=== PATIENT | female | born 1980 | race Caucasian/White ===

== ENCOUNTER 2017-06-13 12:23 | Inpatient (IN) | payer OTHER ==
[2017-06-13] MEDS ORDERED: LR 1,000 ML IV PRN (13:24)
[2017-06-13] MEDS ORDERED: OXYTOCIN/RINGERS LACTATE 1,000 ML IV PRN (13:24)
[2017-06-13] MEDS ORDERED: OLIVE OIL 118 ML BTL MISC PRN (13:24)
[2017-06-13] MEDS ORDERED: TERBUTALINE SULFATE 1 MG/ML VIAL IV PRN (13:24)
[2017-06-13] MEDS ORDERED: EPSOM SALT 454 GM TP PRN (13:24)
[2017-06-13] MEDS ORDERED: ZOLPIDEM TARTRATE 5 MG TAB PO ONE (21:12)
[2017-06-13] MEDS: ACETAMINOPHEN 325 MG TAB PO PRN (21:27)
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
[2017-06-14] MEDS ORDERED: LR 500 ML IV PRN (00:11)
--- NOTE | 2017-06-14 00:16 | OBPROG ---
OBG Labor Progress Note Assessment/Plan: Assessment: 37 y/o @ 39 2/7 wks for IOL secondary GHTN Plan: s/p best balloon, out at MO SVE - 1-260/-3, post NST now Will start Pitocin in am 06/14 BPs stable, most recent 116/80. Will cont to closely monitor Relief of TRAN with Tylenol 06/14/17 00:15 Subjective: Pt is sleeping at this time - SVE Dilation (cm): 1 (1-2) Effacement (%): 50 (60) Station: -3 Ibarra Current Contraction Pattern: Irregular, Other (Specify) FHR (bpm): 140 FHR Pattern Variability: Moderate FHR Category: 1 Membranes: Intact Oxytocin Orders Assessment - Pre-Induction/Augmentation Assessment Gestational Age: 39 week(s) and 2 day(s) ICD10 Worksheet Patient Problems: Problems Problem Status Onset Gestational HTN Acute - ICD10 Problem Qualifiers (1) Gestational HTN Qualifiers: Trimester: T
[2017-06-14] MEDS ORDERED: OXYTOCIN/RINGERS LACTATE 500 ML IV SCH (00:30)
[2017-06-14 01:13] LABS: % IMMATURE GRANULYOCYTES 0.7 % (0.0-1.1); ABSOLUTE IMMATURE GRANULOCYTES 0.09 10^3/uL (0.00-0.10); ADD DIFF? NO; ADD MORPH? NO; ADD SCAN? NO; ATYPICAL LYMPHOCYTE FLAG 0 (0-99); FRAGMENT RBC FLAG 0 (0-99); HEMATOCRIT 45.4 % (38.0-47.0); HEMOGLOBIN 16.3 g/dL (12.6-16.3); LEFT SHIFT FLG 0 (0-99); LIPEMIA HEMOLYSIS FLAG 90 (0-99); MEAN CELL HEMOGLOBIN CONCENTR. 35.9 g/dL (32.4-36.7); MEAN CELL VOLUME 94.8 fL (81.5-99.8); MEAN PLATELET VOLUME 9.7 fL (8.7-11.7); PLATELET CLUMPS FLAG 0 (0-99); PLATELET COUNT 250 10^3/uL (150-400); RED BLOOD CELL COUNT 4.79 10^6/uL (4.18-5.33); RED CELL DISTRIBUTION WIDTH 12.8 % (11.5-15.2)
[2017-06-14] MEDS ORDERED: fentaNYL 2MCG/ML/BUP 0.1% RTU 100 ML BAG EP ONE (01:43)
[2017-06-14] MEDS ORDERED: BUPIVACAINE 0.25% 30 ML SDV ONE (01:44)
[2017-06-14] MEDS ORDERED: PHENYLEPHRINE HCL 100 MCG/ML SYR ONE (01:44)
[2017-06-14] MEDS ORDERED: PHENYLEPHRINE HCL 100 MCG/ML SYR IVP PRN (02:24)
[2017-06-14] MEDS ORDERED: NALOXONE HCL 0.4 MG/ML INJ IVP PRN (02:24)
[2017-06-14] MEDS ORDERED: ONDANSETRON 4 MG/2 ML VIAL IVP PRN (02:24)
--- NOTE | 2017-06-14 02:24 | PREANESOB ---
Obstetric Pre-Anesthesia Info - General Info : 2 Para: 0 - Labor Status Cervical Dilation per last OB SVE: 1 (1-2) Station per last OB SVE: -3 Pitocin: Planned Labor Epidural: Proposed Anesthesia Allergies/Adverse Reactions: Allergy/AdvReac Type Severity Reaction Status Date / Time No Known Allergies Allergy Verified 06/13/17 12:45 Home Medications: Medication Instructions Recorded Vit27&Calcium/Iron/FA 1 each PO DAILY 06/13/17 [ Rx 1 Tablet (RX)] valACYclovir [Valtrex (*)] 1 tab PO DAILY 06/13/17 Visit Medications: Generic Name Dose Route Start Last Admin Trade Name Freq PRN Reason Stop Dose Admin Acetaminophen 650 mg 06/13/17 21:11 06/13/17 21:27 Tylenol PO 12/10/17 21:10 650 mg Q4HRS PRN Administration Pain, Mild/Fever, Can Take PO Lactated Ringer's 1,000 mls @ 0 mls/hr 06/13/17 13:24 Lr IV 12/10/17 13:23 PRN PRN SEE PROTOCOL CONDITIONS Protocol Per Protocol Oxytocin/Lactated Ringer's 1,000 mls @ 150 mls/hr 06/13/17 13:24 Pitocin 20 Units/Lr (Premix) IV PRN PRN Post- bleeding Lactated Ringer's 500 mls @ 500 mls/hr 06/14/17 00:11 06/14/17 01:31 Lr IV 500 mls PRN PRN Administration Maternal Hypotension Oxytocin/Lactated Ringer's 500 mls @ 0 mls/hr 06/14/17 00:30 Pitocin 30 Units/Lr (Premix) IV 12/11/17 00:29 CONT AYLIN Protocol Per Protocol Ibuprofen 600 mg 06/13/17 13:24 Motrin PO 12/10/17 13:23 Q6HRS PRN post , inflammation Magnesium Sulfate 454 gm 06/13/17 13:24 Epsom Salt TP 12/10/17 13:23 Q1H PRN perineal discomfort Fowler Oil 118 ml 06/13/17 13:24 Sweet Oil MISC 12/10/17 13:23 ONCE PRN preneal massage Terbutaline Sulfate 0.25 mg 06/13/17 13:24 Brethine IV 12/10/17 13:23 ONCE PRN Tachysystole Discontinued Medications Generic Name Dose Route Start Last Admin Trade Name Kia PRN Reason Stop Dose Admin Bupivacaine HCl Confirm 06/14/17 01:44 Sensorcaine 0.25% Sdv Administered 06/14/17 01:45 Dose 30 ml .ROUTE .STK-MED ONE Fentanyl/Bupivacaine HCl Confirm 06/14/17 01:43 Fentanyl/Bupivacaine/Ns 2 Mcg/Ml 0.1% (Premix Administered 06/14/17 01:44 Dose 100 ml EP .STK-MED ONE Phenylephrine HCl Confirm 06/14/17 01:44 Neosynephrine Administered 06/14/17 01:45 Dose 1,000 mcg .ROUTE .STK-MED ONE Zolpidem Tartrate 5 mg 06/13/17 21:12 Ambien PO 06/13/17 21:13 ONCE ONE - Anesthesia History Response to Local Anesthetics: Normal Anesthesia & Operative History: No Prior Problems Family Anesthesia History: Not Applicable - Social History Substance Use/Abuse: Denies - Focused Exam Latest Vital Signs (Nursing): see nursing documentation for VS Height/Weight (Nursing): Height 160.02 cm Weight 73.028 kg Respiratory: lungs clear Cardiovascular: regular rate, rhythm ASA Status: II Labs: 06/14/17 00:50 Patient ABO/Rh B POSITIVE 06/14/17 00:50 - Plan Anesthetic Plan: EVANS Consent Signed and on Chart: Yes Patient/Guardian Understands and Agrees to Plan: Yes Urgent/Emergent Case: Warren cr completed preop but documented later for safe timely pt care
--- NOTE | 2017-06-14 02:27 | POSTANESTH ---
Post Anesthetic Evaluation Cardiovascular Status: Normal, Stable, Similar to Pre-Op Cond Respiratory Status: Normal, Stable, Similar to Pre-op Cond. Level of Consciousness/Mental Status: Can Participate in Eval, Alert and Oriented Pain Control: Adequate, Prn Tx Ordered Nausea/Vomiting Control: Adequate, Prn Tx Ordered Complications Possibly Related to Anesthesia: None Noted
[2017-06-14] MEDS ORDERED: fentaNYL 2MCG/ML/BUP 0.1% RTU 100 ML EP SCH (02:30)
[2017-06-14] MEDS ORDERED: LR 500 ML IV SCH (02:30)
[2017-06-14] MEDS ORDERED: TERBUTALINE SULFATE 1 MG/ML VIAL ONE (03:27)
[2017-06-14] MEDS ORDERED: AMMONIA AROMATIC 1 EACH AMP IH ONE (03:27)
[2017-06-14] MEDS ORDERED: OXYTOCIN 10 UNIT/ML VIAL ONE (03:27)
[2017-06-14] MEDS ORDERED: OLIVE OIL 118 ML BTL ONE (03:27)
[2017-06-14] MEDS ORDERED: LIDOCAINE 1% 300 MG/30 ML SDV ONE (03:27)
[2017-06-14] MEDS ORDERED: MISOPROSTOL 200 MCG TAB ONE (03:27)
--- NOTE | 2017-06-14 03:59 | OBPROG ---
OBG Labor Progress Note Assessment/Plan: Assessment: 37 y/o @ 39 2/7 wks for IOL secondary GHTN Plan: s/p best balloon, then spontaneous labor s/p epidural FHTs - Cat II tracing with intermittent variable decels, tachycardia Will start pushing Anticipate 06/14/17 03:58 Subjective: Pt is finally comfortable, s/p epidural Objective: 06/14/17 00:50 Patient ABO/Rh B POSITIVE 06/14/17 00:50 - SVE Dilation (cm): 10 Effacement (%): 100 Station: +2 Ibarra Current Contraction Pattern: Regular FHR (bpm): 160 FHR Pattern Variability: Moderate FHR Category: 1 Membranes: SROM (0030) Amniotic Fluid Color: Bloody Oxytocin Orders Assessment - Pre-Induction/Augmentation Assessment Gestational Age: 39 week(s) and 2 day(s) ICD10 Worksheet Patient Problems: Problems Problem Status Onset Gestational HTN Acute - ICD10 Problem Qualifiers (1) Gestational HTN Qualifiers: Trimester: T
[2017-06-14] MEDS ORDERED: HYDROCODONE/APAP 5/325 TAB PO PRN (04:51)
[2017-06-14] MEDS ORDERED: IBUPROFEN 600 MG TAB PO PRN (04:51)
[2017-06-14] MEDS ORDERED: HYDROCORTISONE 0.5% CREAM TP PRN (04:51)
[2017-06-14] MEDS ORDERED: SIMETHICONE 80 MG TAB CHEW PO PRN (04:51)
--- NOTE | 2017-06-14 04:51 | OBDEL ---
Info Type: Vaginal GBS+: No Indications for Delivery: Spontaneous Labor, Gestational Hypertension (IOL) Vaginal Delivery - Labor and Delivery Onset of Contractions Date: 06/13/17 Onset of Contractions Time: 12:00 Onset of Contractions Type: Spontaneous Rupture of Membranes Date: 06/14/17 Rupture of Membranes Time: 00:30 Rupture of Membranes Type: Spontaneous Amniotic Fluid Color: Bloody Dilation Complete Date: 06/14/17 Dilation Complete Time: 03:30 Placenta Delivery Date: 06/14/17 Placenta Delivery Time: 04:40 Total Hours of Labor: 16 Laceration: 1st Degree Repair: 3-0, Vicryl Vaginal Sponge Count Correct: Yes Vaginal Needle Count Correct: Yes Vaginal Sweep Performed: Yes EBL: 300cc Delivery Events: None Data Ibarra Delivery Date: 06/14/17 Delivery Time: 04:23 SARAVANAN: 06/18/17 Gestational Age: 39 week(s) and 3 day(s) Sex of : Male Score (1 Min): 9 Score (5 Min): 9 ICD10 Worksheet Patient Problems: Problems Problem Status Onset Gestational HTN Acute (spontaneous vaginal delivery) Acute - ICD10 Problem Qualifiers (1) Gestational HTN Qualifiers: Trimester: T (2) (spontaneous vaginal delivery)
[2017-06-14] MEDS: IBUPROFEN 600 MG TAB PO PRN ×3 (05:17→17:21)
--- NOTE | 2017-06-14 16:40 | OBPP ---
Progress Note Assessment/Plan: Assessment: PPD 1/2 s/p early this am Plan: routine care 06/14/17 16:23 Subjective: Doing well. Pt is BF currently - ok with latch. Bld has been heavy today. urinating fine. tired - only had short nap. Objective: 06/14/17 00:50 Patient ABO/Rh B POSITIVE 06/14/17 00:50 Temp Pulse Resp BP Pulse Ox 36.3 C 63 20 119/78 96 06/14/17 13:20 06/14/17 13:20 06/14/17 13:20 06/14/17 13:20 06/14/17 13:20 Physical Exam - Physical Exam General Appearance: WD/WN, alert Abdomen: non-tender, soft, other (normal lochia, FF at umb -1) Extremities: non-tender, pedal edema (none) Skin: normal color, warm/dry Neuro/Psych: alert, normal mood/affect
[2017-06-15] MEDS: IBUPROFEN 600 MG TAB PO PRN ×4 (00:41→20:42)
--- NOTE | 2017-06-15 07:59 | OBPP ---
Progress Note Assessment/Plan: Assessment: s/p PPD # 1 - pt is stable Plan: Continue routine pp care Plan for d/c home 06/1606/15/17 07:59 Subjective: Pt seen and examined. Doing well, she states she is sore down below. Using ice. Some relief with Motrin. Voiding without difficulty, passing flatus. No BM. MOd lochia. BF well so far. Objective: 06/14/17 00:50 Patient ABO/Rh B POSITIVE 06/14/17 00:50 Temp Pulse Resp BP Pulse Ox 36.9 C 82 18 113/81 H 96 06/14/17 19:40 06/14/17 19:40 06/14/17 19:40 06/15/17 00:39 06/14/17 19:40 Uterine Position/Fundal Height: Umbilicus -2 Uterine Tone: Firm Physical Exam - Physical Exam General Appearance: WD/WN, alert, no apparent distress Respiratory: lungs clear, normal breath sounds Cardiac/Chest: regular rate, rhythm Abdomen: normal bowel sounds, non-tender, soft, flatus (+) Extremities: non-tender, normal inspection Skin: normal color, warm/dry Neuro/Psych: alert, normal mood/affect, oriented x 3
[2017-06-15] MEDS: DOCUSATE SODIUM 100 MG CAP PO PRN ×2 (08:34→20:42)
[2017-06-15 09:58] VITALS: RESP 16
[2017-06-16] MEDS: IBUPROFEN 600 MG TAB PO PRN ×2 (02:29→07:27)
[2017-06-16] MEDS: DOCUSATE SODIUM 100 MG CAP PO PRN (07:27)
[2017-06-16] MEDS: ACETAMINOPHEN 325 MG TAB PO PRN (07:27)
--- NOTE | 2017-06-16 10:12 | OBPP ---
Progress Note Assessment/Plan: Assessment: 37 you ppd# 2 s/p gestational hypertension - stable breast feeding mood stable Plan: routine post care and discharge precautions and plan mood precautions pih precautions 06/16/17 10:10 Subjective: patient is doing well. pain is well controlled. was having intense cramping with breast feeding but seems to be improving. declines norco for discharge. breast feeding is going well. normal lochia. denies headache and changes in vision. ready to go home. Objective: 06/14/17 00:50 Patient ABO/Rh B POSITIVE 06/14/17 00:50 Temp Pulse Resp BP Pulse Ox 36.9 C 95 16 124/80 H 95 06/15/17 20:45 06/15/17 20:45 06/15/17 20:45 06/15/17 20:45 06/15/17 20:45 Physical Exam - Physical Exam General Appearance: WD/WN, alert, no apparent distress Respiratory: chest non-tender, lungs clear, normal breath sounds Cardiac/Chest: normal peripheral pulses, regular rate, rhythm Abdomen: normal bowel sounds Extremities: normal range of motion, non-tender, normal inspection, normal capillary refill Skin: normal color, warm/dry Neuro/Psych: no motor/sensory deficits, alert, normal mood/affect, oriented x 3
--- NOTE | 2017-06-16 10:31 | OBGCSDC ---
General Delivery Information - General Info : 2 Para: 1 Delivery Physician/CNM: Ashanti Perea Admission Date: 06/13/17 Labs: Patient ABO/Rh B POSITIVE 06/14/17 00:50 Hct 45.4 % (38.0-47.0) 06/14/17 00:50 Vaginal - Diagnosis Labor: Spontaneous Rupture of Membranes Type: Spontaneous Amniotic Fluid Color: Bloody Laceration: 1st Degree Repair: 3-0, Vicryl Delivery Events: None - Operations/Procedures L&D Analgesia/Anesthesia Type: Epidural - Hospital Course Antepartum: care with [facility] at 9 weeks. negative verify. uncomplicated . gestational hypertension at 39 weeks Intrapartum: best bulb placed for iol for gestational hypertension. spontaneous labor. epidural. pushed less than an hour : blood pressures stabilized. breast feeding is going well. normal lochia. - Delivery L&D Analgesia/Anesthesia Type: Epidural Herminie Data Ibarra Delivery Date: 06/14/17 Delivery Time: 04:23 SARAVANAN: 06/18/17 Gestational Age: 39 week(s) and 5 day(s) Sex of : Male Weight (gm): 2824 g Score (1 Min): 9 Score (5 Min): 9 Discharge Information - Discharge Information Instruction/Follow Up: Two Weeks (one week for blood pressure check), Four Weeks , Six Weeks Discharge Physician/CNM: Anastasia Meier
[2017-06-16 10:43] VITALS: BP 129/91; PULSE 89; TEMP 98.2; O2SAT 98
== END 2017-06-16 11:15 | disposition home or self-care (01) | DRG 775 ==
LOC: OBSVTOIN 12:23 → FLD 12:23 → FOB 06-14 09:13
PROVIDERS: ADMIT Obstetrics & Gynecology; ATTEND Obstetrics & Gynecology
PROC: 0U7C7DZ Dilation of Cervix with Intraluminal Device, Via Natural or Artificial Opening (ICD-10-PCS; principal; 2017-06-13)
PROC: 10E0XZZ Delivery of Products of Conception, External Approach (ICD-10-PCS; principal; 2017-06-13)
PROC: 0HQ9XZZ Repair Perineum Skin, External Approach (ICD-10-PCS; principal; 2017-06-13)
DX: O13.4 Gestational [pregnancy-induced] hypertension without significant proteinuria, complicating childbirth (principal); O70.0 First degree perineal laceration during delivery; O99.284 Endocrine, nutritional and metabolic diseases complicating childbirth; E05.90 Thyrotoxicosis, unspecified without thyrotoxic crisis or storm; O76 Abnormality in fetal heart rate and rhythm complicating labor and delivery; Z3A.39 39 weeks gestation of pregnancy; Z37.0 Single live birth
CPT/HCPCS: J2370; J2590; J3105